=== PATIENT | female | born 1995 | race American Indian/Alaskan Native ===

== ENCOUNTER 2022-04-06 23:54 | Emergency (ER) | payer SELFPAY ==
[2022-04-07 00:04] VITALS: BP 109/74
[2022-04-07 04:24] LABS: Bilirubin,Urine NEG (Negative); Blood,Urine NEG (Negative); Color,Urine Yellow (Yellow); Protein,Urine <15 mg/dL mg/dL (Negative); Urobilinogen,Urine < 2.0 mg/dL (<2.0)
[2022-04-07 04:28] LABS: HCG Qualitative,Urine Negative (Negative)
[2022-04-07 04:45] LABS: RBC,Urine < 1.0 /HPF (0.0-6.0); WBC,Urine < 1.0 /HPF (0.0-6.0)
--- NOTE | 2022-04-07 07:01 | Emergency Department Report ---
ED Female HPI - General Chief complaint: Urogenital-Female Stated complaint: PAIN IN VAGINA Time Seen by Provider: 04/07/22 03:40 Source: patient Mode of arrival: Ambulatory Limitations: No Limitations - History of Present Illness Initial comments: 26-year-old [place] female Lester emerged department complaining of a few day history of progressive worsening dysuria primarily burning with when she urinates and thinks she may have witnessed a little bit of discharge but only mild. Reports no fever, chills, sweats. No chest pain palpitations. No nausea vomiting. Reports no hemoptysis no no hematemesis no pelvic trauma MD Complaint: dysuria -: Gradual, days(s) (2) Radiation: non-radiating Severity: mild Quality: burning Consistency: constant Improves with: none Worsens with: none Associated Symptoms: dysuria. denies: abdominal pain, nausea/vomiting, fever/chills, headaches, loss of appetite, rash, shortness of breath, syncope - Related Data Sexually active: Yes Previous Rx's Medication Instructions Recorded Last Taken Type Phenazopyridine [Pyridium] 200 mg PO TID #9 tab 04/07/22 Unknown Rx metroNIDAZOLE [Flagyl] 500 mg PO Q12HR #14 tab 04/07/22 Unknown Rx Allergies Allergy/AdvReac Type Severity Reaction Status Date / Time No Known Allergies Allergy Verified 04/07/22 00:04 ED Review of Systems ROS: Stated complaint: PAIN IN VAGINA Other details as noted in HPI Comment: All other systems reviewed and negative ED Past Medical Hx - Past Medical History Previous Medical History?: No - Surgical History Past Surgical History?: No - Social History Smoking Status: Never Smoker Substance Use Type: None - Medications Home Medications: Home Medications Medication Instructions Recorded Confirmed Last Taken Type Phenazopyridine [Pyridium] 200 mg PO TID #9 tab 04/07/22 Unknown Rx metroNIDAZOLE [Flagyl] 500 mg PO Q12HR #14 tab 04/07/22 Unknown Rx ED Physical Exam - General Limitations: No Limitations General appearance: alert, in no apparent distress - Head Head exam: Present: atraumatic, normocephalic - Eye Eye exam: Present: normal appearance - ENT ENT exam: Present: mucous membranes moist - Neck Neck exam: Present: normal inspection - Respiratory Respiratory exam: Present: normal lung sounds bilaterally. Absent: respiratory distress - Cardiovascular Cardiovascular Exam: Present: regular rate, normal rhythm. Absent: systolic murmur, diastolic murmur, rubs, gallop - GI/Abdominal GI/Abdominal exam: Present: soft, normal bowel sounds. Absent: tenderness (No tenderness to the suprapubic region no CVA tenderness is noted. No adnexal tenderness) - Extremities Exam Extremities exam: Present: normal inspection - Back Exam Back exam: Present: normal inspection - Neurological Exam Neurological exam: Present: alert, oriented X3 - Psychiatric Psychiatric exam: Present: normal affect, normal mood - Skin Skin exam: Present: warm, dry, intact, normal color. Absent: rash ED Course Vital Signs 04/07/22 00:01 Temperature 98.6 F Pulse Rate 81 Respiratory 18 Rate Blood Pressure 109/74 [Left] O2 Sat by Pulse 98 Oximetry Critical care attestation.: If time is entered above; I have spent that time in minutes in the direct care of this critically ill patient, excluding procedure time. ED Disposition Clinical Impression: Dysuria, Vaginitis Disposition: HOME / SELF CARE / HOMELESS Is pt being admited?: No Does the pt Need Aspirin: No Condition: Stable Instructions: Bacterial Vaginosis, [id number], Dysuria, Vaginitis Additional Instructions: He was seen by emergency department today for dysuria and also some reported female discharge. On examination there is no pelvic tenderness or back pain no evidence of any urgent or emergent condition it is recommended she follow-up with the health department for definitive STD testing or your [facility]. You be been provided medication to help to mitigate your symptoms and to cover you for general bacterial vaginal infection. Prescriptions: metroNIDAZOLE [Flagyl] 500 mg PO Q12HR #14 tab Phenazopyridine [Pyridium] 200 mg PO TID #9 tab Referrals: [facility] [Provider Group] - 3-5 Days [facility] [Outside] - 3-5 Days
== END 2022-04-07 07:20 | disposition home or self-care (01) ==
LOC: ED 23:54
DX: R30.0 Dysuria (principal); N76.0 Acute vaginitis; Z79.899 Other long term (current) drug therapy
CPT/HCPCS: 81001; 81025; 99283